=== PATIENT | female | born 1945 | race Caucasian/White ===

== ENCOUNTER → 2017-02-14 | Outpatient (CLI) | payer MEDICARE ==
[~2017-02-14] VITALS: Ht 170.2 cm; Wt 129.7 kg
[~2017-02-14] MED LIST: ALPR.5 PO; AMLO5 PO; CELE20TA PO; CHLORHEXIDINE GLUCONATE 2 % 1 PACK (2 CLOTHS) TOPICAL PRN; INSULIN HUMAN REGULAR 1,000 UNITS/10 ML VIAL SQ PRN; LACTATED RINGER'S 1000 ML IV PRN; LEVO150T52 PO; METOPROLOL TARTRATE 25 MG TAB PO PRN; POVIDONE IODINE 5% (ANTISEPSIS KIT) 4 APPLICATIONS EACH NARE PRN; PRAV40TA PO; PROPOFOL 200 MG/20 ML AMP IV ONE; SODIUM CHLORID 0.9% 500 ML IV PRN; TRIA37.53 PO
[2017-02-14 09:25] VITALS: BP 125/73; PULSE 70; RESP 16; TEMP 98.7; O2SAT 97
[2017-02-14 12:10] VITALS: TEMP 97.3
--- NOTE | 2017-02-14 12:14 | PD.PROCEDR ---
GI Procedure PROCEDURE PERFORMED Colonoscopy with biopsy INDICATION FOR PROCEDURE Screening PROCEDURE: The procedure, risks and benefits were discussed with Ms. Caceres and informed consent was obtained. Anesthesia sedated her with Diprivan. She was placed in the left lateral decubitus position. Colonoscopy: The Pentax videoscope was introduced through the rectum and advanced to cecum where the ileocecal valve and appendiceal orifice were identified. Retroflexion was performed in the rectum. Colonic prep was fair FINDINGS: Colonic withdrawal time greater than 6 minutes as the scope was slowly withdrawn colonic mucosa was carefully inspected the patient was noted to have 2 small polyps 1 in the ascending colon one in the descending colon both were excised using cold biopsy forceps excision was complete the patient was also noted to have severe diverticulosis of the sigmoid and to a lesser extent of the descending colon retroflexion in the rectum was unremarkable cells rectal examination ESTIMATED BLOOD LOSS: None SPECIMENS REMOVED: : Biopsies COMPLICATIONS: None IMPRESSION: Colon polyps Severe diverticulosis PLAN: Await biopsy High fiber diet with fiber supplements and to avoid nuts seeds and popcorn and to chew food well Colonoscopy in 3 years Riky Hurley MD Feb 14, 2017 12:14
[2017-02-14 12:24] VITALS: BP 105/54; PULSE 55; RESP 16; O2SAT 98
== END ==
LOC: HEND 08:35
PROVIDERS: ATTEND Internal Medicine Gastroenterology
DX: Z12.11 Encounter for screening for malignant neoplasm of colon (principal); D12.4 Benign neoplasm of descending colon; D12.3 Benign neoplasm of transverse colon; K57.30 Diverticulosis of large intestine without perforation or abscess without bleeding; I12.9 Hypertensive chronic kidney disease with stage 1 through stage 4 chronic kidney disease, or unspecified chronic kidney disease; N18.3 Chronic kidney disease, stage 3 (moderate)
CPT/HCPCS: 00810; 45380; 88305; J7120

== ENCOUNTER 2018-04-14 17:41 | Observation (INO) | payer MEDICARE ==
[~2018-04-14] VITALS: Ht 170.2 cm; Wt 139.2 kg
[~2018-04-14 17:41] MED LIST changes: -CHLORHEXIDINE GLUCONATE 2 % 1 PACK (2 CLOTHS) TOPICAL PRN; -INSULIN HUMAN REGULAR 1,000 UNITS/10 ML VIAL SQ PRN; -LACTATED RINGER'S 1000 ML IV PRN; -METOPROLOL TARTRATE 25 MG TAB PO PRN; -POVIDONE IODINE 5% (ANTISEPSIS KIT) 4 APPLICATIONS EACH NARE PRN; -PROPOFOL 200 MG/20 ML AMP IV ONE; -SODIUM CHLORID 0.9% 500 ML IV PRN
[2018-04-14 18:08] VITALS: BP 182/74; PULSE 68; RESP 18; TEMP 98; O2SAT 95
[2018-04-14 19:58] VITALS: BP 177/79; PULSE 52; RESP 18; O2SAT 99
--- NOTE | 2018-04-14 20:10 | PD ---
HPI Chief Complaint: Chest Pain Time Seen by Provider: 19:59 Travel History International Travel<30 days: No Contact w/Intl Traveler<30days: No Traveled to known affect area: No History of Present Illness HPI The patient was seen and examined in the presence of the nurse. This patient complains of chest pain. Pain started this morning shortly after she woke up. Spend coming on and off throughout the day. Last several minutes and resolves. It is not exertional. Location is very low center sternum. Almost at the juncture and of chest and abdomen. She has no gallbladder. She has not had vomiting or fever. Symptom severity is moderate. No alleviating factors. No exacerbating factors. She did have a cardiac stress test many years ago which was negative. She denies any cardiac problems. She does have an hiatal hernia PFS Past Medical History Cancer: Yes (RIGHT BREAST ) Cardiac Catheterization: Yes Cardiovascular Problems: No High Cholesterol: Yes Diabetes: No Diminished Hearing: No Endocrine: No GERD: Yes Glaucoma: No Genitourinary: No Hepatitis: No Hiatal Hernia: Yes Hypertension: Yes Immune Disorder: No Musculoskeletal: Yes (ARTHRITIS) Neurologic: No Psychiatric: No Reproductive: No Respiratory: Yes (COPD) Thyroid Disease: Yes ?: Not Menopausal: Yes Past Surgical History Abdominal Surgery: Yes (CHOLECYSTECTOMY) AICD: No Appendectomy: Yes Body Medical Devices: PIN LEFT ANKLE Cholecystectomy: Yes Ear Surgery: Yes Joint Replacement: Yes (BOTH KNEES) Pacemaker: No Thoracic Surgery: Yes (LUMPECTOMY RIGHT BREAST,) Tonsillectomy: Yes Other Surgery: Yes (TUMOR REMOVED FROM RIGHT BREAST 05/2008) Social History Alcohol Use: Yes (OCC) Tobacco Use: No Substance Use: No Allergies-Medications (Allergen,Severity, Reaction): Coded Allergies: No Known Allergies (Verified , 02/14/17) Reported Meds & Prescriptions Reported Meds & Active Scripts Active Reported Levoxyl (Levothyroxine Sodium) 150 Mcg Tab 150 Mcg PO DAILY Triamterene-Hydrochlorothiazide 37.5-25 Mg Cap 1 Cap PO DAILY Pravachol (Pravastatin) 40 Mg Tab 40 Mg PO HS Norvasc (Amlodipine Besylate) 5 Mg Tab 5 Mg PO DAILY Xanax (Alprazolam) 0.5 Mg Tab 0.5 Mg PO DAILY PRN Review of Systems General / Constitutional: No: Fever Eyes: No: Visual changes HENT: No: Headaches Cardiovascular: Positive: Chest Pain or Discomfort Respiratory: No: Shortness of Breath Gastrointestinal: No: Vomiting Genitourinary: No: Dysuria Musculoskeletal: No: Pain Skin: No Rash Neurologic: No: Weakness Psychiatric: No: Depression Endocrine: No: Polydipsia Hematologic/Lymphatic: No: Easy Bruising Physical Exam Narrative GENERAL: Well-nourished, well-developed patient in no apparent distress. SKIN: Focused skin assessment reveals no rash and nodules. Skin is Warm and dry. HEAD: Atraumatic. Normocephalic. EYES: Pupils equal and round. No scleral icterus. No injection or drainage. ENT: No nasal bleeding or discharge. Mucous membranes pink and moist. NECK: Trachea midline. No JVD. CARDIOVASCULAR: Regular rate and rhythm. No murmur appreciated. RESPIRATORY: No accessory muscle use. Clear to auscultation. Breath sounds equal bilaterally. GASTROINTESTINAL: Abdomen soft, obese, non-tender, nondistended. Hepatic and splenic margins not palpable. MUSCULOSKELETAL: No obvious deformities. No clubbing. No cyanosis. No edema. NEUROLOGICAL: Awake and alert. No obvious cranial nerve deficits. Motor grossly within normal limits. Normal speech. PSYCHIATRIC: Appropriate mood and affect; insight and judgment normal. Data Data Last Documented VS Vital Signs Date Time Temp Pulse Resp B/P (MAP) Pulse Ox O2 Delivery O2 Flow Rate FiO2 04/14/18 21:17 66 16 144/61 (88) 98 Room Air 04/14/18 18:08 98.0 Orders Orders Electrocardiogram (04/14/18 20:06) Ckmb (Isoenzyme) Profile (04/14/18 20:06) Complete Blood Count With Diff (04/14/18 20:06) Comprehensive Metabolic Panel (04/14/18 20:06) Prothrombin Time / Inr (Pt) (04/14/18 20:06) Act Partial Throm Time (Ptt) (04/14/18 20:06) Troponin I (04/14/18 20:06) Chest, Single Ap (04/14/18 20:06) Ecg Monitoring (04/14/18 20:06) Iv Access Insert/Monitor (04/14/18 20:06) Oximetry (04/14/18 20:06) Sodium Chloride 0.9% Flush (Ns Flush) (04/14/18 20:15) Lidocaine 2% Viscous (Xylocaine 2% Visco (04/14/18 20:15) Al-Mag Hy-Si 40-40-4 Mg/Ml Liq (Mag-Al P (04/14/18 20:15) Lipase (04/14/18 20:06) CKMB (04/14/18 20:05) CKMB% (04/14/18 20:05) Admit Order (Ed Use Only) (04/14/18:31) Place In Observation (04/14/18:29) Activity Bed Rest With Brp (04/14/18:29) Vital Signs (Adult) Q4H (04/14/18:) Cardiac Rhythm .As Directed (04/14/18) Notify Dr: Other .PRN (04/14/18:) Notify Parameters (04/14/18:) Resp Oxygen Nasal Cannula (04/14/18 ) Diet Npo (04/15/18 Breakfast) Ckmb (Isoenzyme) Profile (04/14/18 23:00) Ckmb (Isoenzyme) Profile (04/15/18 02:00) Troponin I (04/14/18 23:00) Troponin I (04/15/18 02:00) Electrocardiogram (04/14/18 23:00) Electrocardiogram (04/15/18 02:00) ^ Obtain (04/14/18:29) Sodium Chlor 0.9% 1000 Ml Inj (Ns 1000 M (04/14/18:29) Sodium Chloride 0.9% Flush (Ns Flush) (04/14/18 21:30) Sodium Chloride 0.9% Flush (Ns Flush) (04/15/18 09:00) Acetaminophen (Tylenol) (04/14/18 21:30) Acetamin-Hydrocod 325-7.5 Mg ([place] 7.5 (04/14/18 21:30) Morphine Inj (Morphine Inj) (04/14/18 21:30) Ondansetron Inj (Zofran Inj) (04/14/18 21:30) Pet Caregiver / Telemetry JACKSON.Q8H (04/14/18:29) Heparin Inj (Heparin Inj) (04/14/18 21:30) Labs Laboratory Tests Test 04/14/18 20:05 White Blood Count 8.1 TH/MM3 Red Blood Count 4.72 MIL/MM3 Hemoglobin 13.4 GM/DL Hematocrit 40.5 % Mean Corpuscular Volume 86.0 FL Mean Corpuscular Hemoglobin 28.4 PG Mean Corpuscular Hemoglobin Concent 33.0 % Red Cell Distribution Width 13.8 % Platelet Count 206 TH/MM3 Mean Platelet Volume 8.9 FL Neutrophils (%) (Auto) 67.6 % Lymphocytes (%) (Auto) 19.5 % Monocytes (%) (Auto) 8.4 % Eosinophils (%) (Auto) 3.9 % Basophils (%) (Auto) 0.6 % Neutrophils # (Auto) 5.5 TH/MM3 Lymphocytes # (Auto) 1.6 TH/MM3 Monocytes # (Auto) 0.7 TH/MM3 Eosinophils # (Auto) 0.3 TH/MM3 Basophils # (Auto) 0.0 TH/MM3 CBC Comment DIFF FINAL Differential Comment Prothrombin Time 10.2 SEC Prothromb Time International Ratio 1.0 RATIO Activated Partial Thromboplast Time 27.9 SEC Blood Urea Nitrogen 31 MG/DL Creatinine 1.10 MG/DL Random Glucose 87 MG/DL Total Protein 7.4 GM/DL Albumin 3.8 GM/DL Calcium Level 9.5 MG/DL Alkaline Phosphatase 81 U/L Aspartate Amino Transf (AST/SGOT) 18 U/L Alanine Aminotransferase (ALT/SGPT) 24 U/L Total Bilirubin 0.3 MG/DL Sodium Level 140 MEQ/L Potassium Level 4.4 MEQ/L Chloride Level 105 MEQ/L Carbon Dioxide Level 25.2 MEQ/L Anion Gap 10 MEQ/L Estimat Glomerular Filtration Rate 49 ML/MIN Total Creatine Kinase 149 U/L Creatine Kinase MB 2.7 NG/ML Troponin I LESS THAN 0.02 NG/ML Lipase 197 U/L MDM Medical Decision Making Medical Screen Exam Complete: Yes Emergency Medical Condition: Yes Medical Record Reviewed: Yes Differential Diagnosis ACS, esophagitis, GERD, pancreatitis Narrative Course I have reviewed the patient's electronic medical record. No recent cardiac workups here. Patient had chest fluttering 2006 IV placed and labs sent I reviewed her EKG which shows sinus rhythm and no ST elevation or ectopy I reviewed her chest x-ray which is negative Extended cardiac monitoring reveals sinus rhythm without ectopy I gave her a trial of Maalox and lidocaine Metabolic studies and CBC and cardiac enzymes are all normal Patient will be a 23 hour observation in the chest pain center in order to rule out cardiac cause of her symptoms. It is possible this is GI in origin but given her age and obesity she has cardiac risk I reviewed with the hospitalist Diagnosis Primary Impression: Chest pain Qualified Codes: R07.9 - Chest pain, unspecified Admitting Information Admitting Physician Requests: Observation Samuel Guzman MD Apr 14, 2018 20:10
[2018-04-14] MEDS ORDERED: SODIUM CHLORIDE 0.9% FLUSH 10 ML FLUSH IVF PRN (20:15)
[2018-04-14] MEDS ORDERED: LIDOCAINE VISCOUS 2% SOLN 15 ML UDC PO ONE (20:15)
[2018-04-14] MEDS ORDERED: ALUMINUM/MAGNESIUM/SIMETH 30 ML CUP PO ONE (20:15)
[2018-04-14 20:18] LABS: AUTOMATED NEUTROPHIL # 5.5 TH/MM3 (1.8-7.7); BASOPHIL % 0.6 % (0.0-2.0); EOSINOPHIL # 0.3 TH/MM3 (0-0.4); EOSINOPHIL % 3.9 % (0.0-4.0); HEMATOCRIT 40.5 % (35.0-46.0); HEMOGLOBIN 13.4 GM/DL (11.6-15.3); LYMPH % 19.5 % (9.0-44.0); LYMPHOCYTE # 1.6 TH/MM3 (1.0-4.8); MEAN CORPUSCULAR HEMOGLOBIN 28.4 PG (27.0-34.0); MEAN PLATELET VOLUME 8.9 FL (7.0-11.0); MONO % 8.4 % (0.0-8.0); MONOCYTE # 0.7 TH/MM3 (0-0.9); NEUT % 67.6 % (16.0-70.0); PLATELET COUNT 206 TH/MM3 (150-450); RED BLOOD COUNT 4.72 MIL/MM3 (4.00-5.30); RED CELL DISTRIBUTION WIDTH 13.8 % (11.6-17.2); WHITE BLOOD COUNT 8.1 TH/MM3 (4.0-11.0)
[2018-04-14 20:29] VITALS: BP 137/63; PULSE 58; RESP 18; O2SAT 98
[2018-04-14 20:32] LABS: CHLORIDE 105 MEQ/L (98-107); SODIUM (NA) 140 MEQ/L (136-145)
[2018-04-14 20:35] LABS: CALCIUM 9.5 MG/DL (8.5-10.1)
[2018-04-14 20:36] LABS: ALBUMIN 3.8 GM/DL (3.4-5.0); BICARBONATE 25.2 MEQ/L (21.0-32.0); BLOOD UREA NITROGEN 31 MG/DL (7-18); GLUCOSE,RANDOM 87 MG/DL (74-106); PROTHROMBIN TIME - PATIENT 10.2 SEC (9.8-11.6)
[2018-04-14 20:38] LABS: ALT (GPT) 24 U/L (10-53); AST (GOT) 18 U/L (15-37)
[2018-04-14 20:39] LABS: GLOMERULAR FILTRATION RATE 49 ML/MIN (>89)
[2018-04-14 20:40] LABS: TOTAL BILIRUBIN ADULT 0.3 MG/DL (0.2-1.0); TOTAL PROTEIN 7.4 GM/DL (6.4-8.2)
[2018-04-14 20:41] LABS: ALKALINE PHOSPHATASE 81 U/L (45-117)
[2018-04-14 20:44] LABS: TROPONIN I LESS THAN 0.02 NG/ML (0.02-0.05)
--- NOTE | 2018-04-14 21:05 | RADRPT ---
EXAM DATE: 04/14/2018 8:47 PM EDT AGE/SEX: 72 years / Female INDICATIONS: Patient complains of tightness in center of chest. CLINICAL DATA: This is the patient's initial encounter. Patient reports that signs and symptoms have been present for 1 day and indicates a pain score of 2/10. MEDICAL/SURGICAL HISTORY: . Hiatal hernia. . Lumpectomy, left. COMPARISON: [facility], CHEST SINGLE AP, 06/15/2016. . FINDINGS: A single AP view of the chest demonstrates the lungs to be symmetrically aerated without evidence of mass, infiltrate or effusion. The cardiomediastinal contours are unremarkable. Osseous structures a re intact. CONCLUSION: No acute cardiopulmonary findings. Stable compared to previous. Electronically signed by: Brian Amin MD 04/14/2018 9:04 PM EDT
[2018-04-14 21:17] VITALS: BP 144/61; PULSE 66; RESP 16; O2SAT 98
[2018-04-14] MEDS ORDERED: ONDANSETRON HCL 4 MG/2 ML VIAL IV PUSH PRN (21:30)
[2018-04-14] MEDS ORDERED: SODIUM CHLORIDE 0.9% FLUSH 10 ML FLUSH IV FLUSH PRN (21:30)
[2018-04-14] MEDS ORDERED: ACETAMINOPHEN/HYDROcodone 325 MG/7.5 MG TAB PO PRN (21:30)
[2018-04-14] MEDS ORDERED: ACETAMINOPHEN 500 MG CPLT PO PRN (21:30)
[2018-04-14] MEDS ORDERED: MORPHINE SULFATE 2 MG/ML SYRINGE IV PUSH PRN (22:00)
[2018-04-14 22:07] VITALS: O2SAT 99
[2018-04-14] MEDS: HEPARIN SODIUM - SQ 10,000 UNITS/ML VIAL SQ SCH (22:20)
[2018-04-14 23:09] VITALS: PULSE 54
[2018-04-14] MEDS: SODIUM CHLOR 0.9% 1000 ML INJ 1,000 ML IV SCH (23:17)
[2018-04-14 23:37] LABS: TROPONIN I LESS THAN 0.02 NG/ML (0.02-0.05)
[2018-04-15] VITALS: BP 142/65; PULSE 52; RESP 20; TEMP 97.3; O2SAT 100
[2018-04-15] MEDS ORDERED: ALPRAZolam 0.5 MG TAB PO SCH (02:30)
[2018-04-15 03:09] LABS: TROPONIN I LESS THAN 0.02 NG/ML (0.02-0.05)
[2018-04-15 04:00] VITALS: BP 144/67; PULSE 55; RESP 21; TEMP 98.2; O2SAT 98
[2018-04-15] MEDS: HEPARIN SODIUM - SQ 10,000 UNITS/ML VIAL SQ SCH ×2 (05:06→14:00)
[2018-04-15] MEDS: SODIUM CHLOR 0.9% 1000 ML INJ 1,000 ML IV SCH ×2 (05:06→13:29)
[2018-04-15] MEDS ORDERED: LEVOTHYROXINE SODIUM 150 MCG TAB PO SCH (07:00)
[2018-04-15 07:50] VITALS: BP 151/64; PULSE 56; RESP 20; TEMP 96.8; O2SAT 99
--- NOTE | 2018-04-15 08:04 | HHI.HP ---
[facility] Service [facility] Primary Care Physician Isabella Menjivar MD Admission Diagnosis Chest pain Diagnoses: (1) Chest pain Chief Complaint: Chest pain Travel History International Travel<30 Days: No Contact w/Intl Traveler <30 Da: No Traveled to Known Affected Are: No History of Present Illness This is a pleasant 72-year-old female patient with a known medical history of hyperlipidemia, GERD, hypertension, hypothyroidism who presented to the ED with complaints of chest pain. Patient states that yesterday morning shortly after waking up she was drinking her coffee around 11 AM and developed mid epigastric pain, she characterized the pain similar to indigestion. She does admit to burning pain as well as gas. Patient states that she did take some Gas-X which mildly helped the symptoms although her pain did return. She denies any recent illness including fever, chills, cough, shortness of breath, abdominal pain, nausea, vomiting, diarrhea or dysuria. She denies any bloody or black stools. Patient does state that when she arrived to the ER she was given Maalox which did help her symptoms. Along with the mid epigastric burning she did state that her left arm was cramping as well as her left ear and jaw. She also admits to some fluttering sensation in her chest. She denies ever having this type of sensations before. Patient does admit to increasing stress in her life due to her daughter's illness. She does state that she did follow with [facility] over a year ago underwent a nuclear stress test in January of 2017 which was reportedly unremarkable. Review of Systems Constitutional: DENIES: Fever, Chills Eyes: DENIES: Blurred vision, Diplopia Ears, nose, mouth, throat: DENIES: Vertigo Respiratory: DENIES: Cough, Sputum production, Shortness of breath Cardiovascular: COMPLAINS OF: Chest pain, Palpitations, DENIES: Dyspnea on Exertion, Lower Extremity Edema Gastrointestinal: COMPLAINS OF: Abdominal pain, DENIES: Black stools, Bloody stools, Constipation, Diarrhea, Nausea, Vomiting Hematologic/lymphatic: DENIES: Bruising Immunologic/allergic: DENIES: Eczema Neurologic: DENIES: Abnormal gait Psychiatric: COMPLAINS OF: Anxiety Except as stated in HPI: all other systems reviewed are Neg Past Family Social History Past Medical History History of right breast cancer Hyperlipidemia GERD Hiatal hernia Hypertension Arthritis Hypothyroidism COPD Past Surgical History Cholecystectomy Bilateral knee replacement Right breast lumpectomy Appendectomy Tonsillectomy Reported Medications Active Reported Levoxyl (Levothyroxine Sodium) 150 Mcg Tab 150 Mcg PO DAILY Triamterene-Hydrochlorothiazide 37.5-25 Mg Cap 1 Cap PO DAILY Pravachol (Pravastatin) 40 Mg Tab 40 Mg PO HS Norvasc (Amlodipine Besylate) 5 Mg Tab 5 Mg PO DAILY Xanax (Alprazolam) 0.5 Mg Tab 0.5 Mg PO TID Allergies: Coded Allergies: No Known Allergies (Verified Allergy, Unknown, 04/14/18) Active Ordered Medications Current Medications Medications (Trade) Dose Ordered Sig/Malathi Route Start Time Stop Time Status Last Admin Sodium Chloride 1,000 ml @ 125 mls/hr Q8H IV 04/14/18 21:29 04/15/18 05:06 (NS Flush) 2 ml UNSCH PRN IV FLUSH 04/14/18 21:30 (NS Flush) 2 ml BID IV FLUSH 04/15/18 09:00 (Tylenol) 500 mg Q4H PRN PO 04/14/18 21:30 04/14/18 23:36 ([place] 7.5-325 Mg) 1 tab Q4H PRN PO 04/14/18 21:30 (Morphine Inj) 2 mg Q4H PRN IV PUSH 04/14/18 22:00 (Zofran Inj) 4 mg Q6H PRN IV PUSH 04/14/18 21:30 (Heparin Inj) 5,000 units Q8HR SQ 04/14/18 22:00 04/15/18 05:06 (Xanax) 0.5 mg TID PO 04/15/18 09:00 04/15/18 09:06 (Norvasc) 5 mg DAILY PO 04/15/18 09:00 04/15/18 09:06 (Synthroid) 150 mcg DAILY@0700 PO 04/15/18 07:00 04/15/18 09:06 (Pravachol) 40 mg HS PO 04/15/18 21:00 (Protonix) 40 mg DAILY PO 04/15/18 09:00 04/15/18 09:06 Family History Denies any significant family medical history. Social History Denies any tobacco abuse. She does admit to occasional alcohol use. Denies any illicit drug use. Physical Exam Vital Signs Vital Signs Date Time Temp Pulse Resp B/P (MAP) Pulse Ox O2 Delivery O2 Flow Rate FiO2 04/15/18 04:00 98.2 55 21 144/67 (92) 98 04/15/18 00:00 97.3 52 20 142/65 (90) 100 04/14/18 23:10 04/14/18 23:09 54 04/14/18 22:07 99 21 04/14/18 21:17 66 16 144/61 (88) 98 Room Air 04/14/18 20:29 58 18 137/63 (87) 98 Room Air 04/14/18 20:01 63 99 Room Air 04/14/18 19:58 52 18 177/79 (111) 99 Room Air 04/14/18 18:08 98.0 68 18 182/74 (110) 95 Physical Exam GENERAL: This is a well-nourished, well-developed patient, in no apparent distress. SKIN: No rashes, ecchymoses or lesions. Cool and dry. HEAD: Atraumatic. Normocephalic. No temporal or scalp tenderness. EYES: Pupils equal round and reactive. Extraocular motions intact. No scleral icterus. No injection or drainage. ENT: Nose without bleeding, purulent drainage or septal hematoma. Throat without erythema, tonsillar hypertrophy or exudate. Uvula midline. Airway patent. NECK: Trachea midline. No JVD or lymphadenopathy. Supple, nontender, no meningeal signs. CARDIOVASCULAR: Regular rate and rhythm without murmurs, gallops, or rubs. RESPIRATORY: Clear to auscultation. Breath sounds equal bilaterally. No wheezes , rales, or rhonchi. GASTROINTESTINAL: Abdomen soft, non-tender, nondistended. No hepato-splenomegaly , or palpable masses. No guarding. MUSCULOSKELETAL: Extremities without clubbing, cyanosis, or edema. No joint tenderness, effusion, or edema noted. No calf tenderness. Negative Homans sign bilaterally. NEUROLOGICAL: Awake and alert. Cranial nerves II through XII intact. Motor and sensory grossly within normal limits. Five out of 5 muscle strength in all muscle groups. Normal speech. Laboratory Laboratory Tests Test 04/14/18 20:05 04/14/18 23:05 04/15/18 02:28 White Blood Count 8.1 Red Blood Count 4.72 Hemoglobin 13.4 Hematocrit 40.5 Mean Corpuscular Volume 86.0 Mean Corpuscular Hemoglobin 28.4 Mean Corpuscular Hemoglobin Concent 33.0 Red Cell Distribution Width 13.8 Platelet Count 206 Mean Platelet Volume 8.9 Neutrophils (%) (Auto) 67.6 Lymphocytes (%) (Auto) 19.5 Monocytes (%) (Auto) 8.4 Eosinophils (%) (Auto) 3.9 Basophils (%) (Auto) 0.6 Neutrophils # (Auto) 5.5 Lymphocytes # (Auto) 1.6 Monocytes # (Auto) 0.7 Eosinophils # (Auto) 0.3 Basophils # (Auto) 0.0 CBC Comment DIFF FINAL Differential Comment Prothrombin Time 10.2 Prothromb Time International Ratio 1.0 Activated Partial Thromboplast Time 27.9 Blood Urea Nitrogen 31 Creatinine 1.10 Random Glucose 87 Total Protein 7.4 Albumin 3.8 Calcium Level 9.5 Alkaline Phosphatase 81 Aspartate Amino Transf (AST/SGOT) 18 Alanine Aminotransferase (ALT/SGPT) 24 Total Bilirubin 0.3 Sodium Level 140 Potassium Level 4.4 Chloride Level 105 Carbon Dioxide Level 25.2 Anion Gap 10 Estimat Glomerular Filtration Rate 49 Total Creatine Kinase 149 130 151 Creatine Kinase MB 2.7 2.3 2.1 Troponin I LESS THAN 0.02 LESS THAN 0.02 LESS THAN 0.02 Lipase 197 Result Diagram: 04/14/18200404/14/182004 Imaging Last Impressions Chest X-Ray 04/14/182005 Signed Impressions: CONCLUSION: No acute cardiopulmonary findings. Stable compared to previous. Septic Shock Reassessment Septic shock perfusion: reassessment completed Caprini VTE Risk Assessment Caprini VTE Risk Assessment: Mod/High Risk (score >= 2) Caprini Risk Assessment Model Point Value = 1 Point Value = 2 Point Value = 3 Point Value = 5 Age 41-60 Minor surgery BMI > 25 kg/m2 Swollen legs Varicose veins or History of unexplained or recurrent spontaneous Oral contraceptives or hormone replacement Sepsis (< 1 month) Serious lung disease, including pneumonia (< 1 month) Abnormal pulmonary function Acute myocardial infarction Congestive heart failure (< 1 month) History of inflammatory bowel disease Medical patient at bed rest Age 61-74 Arthroscopic surgery Major open surgery (> 45 min) Laparoscopic surgery (> 45 min) Malignancy Confined to bed (> 72 hours) Immobilizing plaster cast Central venous access Age >= 75 History of VTE Family history of VTE Factor V Leiden Prothrombin [id number] Lupus anticoagulant Anticardiolipin antibodies Elevated serum homocysteine Heparin-induced thrombocytopenia Other congenital or acquired thrombophilia Stroke (< 1 month) Elective arthroplasty Hip, pelvis, or leg fracture Acute spinal cord injury (< 1 month) Prophylaxis Regimen Total Risk Factor Score Risk Level Prophylaxis Regimen 0-1 Low Early ambulation 2 Moderate Order ONE of the following: *Sequential Compression Device (SCD) *Heparin 5000 units SQ BID 3-4 Higher Order ONE of the following medications: *Heparin 5000 units SQ TID *Enoxaparin/Lovenox 40 mg SQ daily (WT < 150 kg, CrCl > 30 mL/min) *Enoxaparin/Lovenox 30 mg SQ daily (WT < 150 kg, CrCl > 10-29 mL/min) *Enoxaparin/Lovenox 30 mg SQ BID (WT < 150 kg, CrCl > 30 mL/min) AND/OR *Sequential Compression Device (SCD) 5 or more Highest Order ONE of the following medications: *Heparin 5000 units SQ TID (Preferred with Epidurals) *Enoxaparin/Lovenox 40 mg SQ daily (WT < 150 kg, CrCl > 30 mL/min) *Enoxaparin/Lovenox 30 mg SQ daily (WT < 150 kg, CrCl > 10-29 mL/min) *Enoxaparin/Lovenox 30 mg SQ BID (WT < 150 kg, CrCl > 30 mL/min) AND *Sequential Compression Device (SCD) Assessment and Plan Problem List: (1) Chest pain ICD Code: R07.9 - Chest pain, unspecified Status: Acute Assessment and Plan This is a pleasant 72-year-old female patient with a known medical history of hyperlipidemia, GERD, hypertension, hypothyroidism who presented to the ED with complaints of chest pain. Atypical chest pain - Patient has been admitted to the chest pain center for observation. - Serial EKGs and serial troponins have been ordered for ruling out ACS purposes. Serial troponins flat. EKG reviewed showing sinus bradycardia no ST changes to indicate ischemia. - CBC and BMP reviewed, essentially unremarkable. - Chest x-ray reviewed showing no acute disease. - All symptoms have resolved. - Pain control, [place] p.o. and morphine IV available per pain scale. - Patient does admit to associated midepigastric burning. Was given one-time dose of Maalox with some relief. Will repeat. - Patient will undergo a myocardial perfusion scan to further rule out any ischemia. - Further hospitalization and treatment plan will depend on nuclear imaging results. - Patient is stable at this time and agreeable to the plan. Hypertension, chronic: We will continue home medications. Continue to monitor blood pressure trends. GERD: Maalox given x 2. Protonix started. Will continue to monitor. Supportive care. Hyperlipidemia, chronic: We will continue home statin. DVT prophylaxis: SCDs. Heparin. Discharge patient to home. Condition on discharge: Improved. Heart healthy regular Diet as tolerated. Ad Trista activity. Rx written: Please see discharge instructions. Follow-up with primary care physician. Discussed Condition With Patient underwent myocardial perfusion scan, results reviewed with patient. EF adequate. No ischemia. Symptoms may be secondary to reflux. Patient may need endoscopy. Encourage patient to follow-up with GI. Patient given her tonics as well as Maalox. All symptoms have resolved. Patient encouraged to return to ED if symptoms worsen or persist. Stable at this time and agreeable to the plan. Problem Qualifiers (1) Chest pain: Qualified Codes: R07.9 - Chest pain, unspecified Kandace Velasquez Apr 15, 2018 08:04
[2018-04-15 08:19] VITALS: PULSE 62
[2018-04-15] MEDS ORDERED: ALUMINUM/MAGNESIUM/SIMETH 30 ML CUP PO ONE (08:30)
[2018-04-15] MEDS ORDERED: PANTOPRAZOLE SOD 40 MG DELAYED RELEASE TAB PO SCH (09:00)
[2018-04-15] MEDS ORDERED: SODIUM CHLORIDE 0.9% FLUSH 10 ML FLUSH IV FLUSH SCH (09:00)
[2018-04-15] MEDS ORDERED: amLODIPine BESYLATE 5 MG TAB PO SCH (09:00)
[2018-04-15] MEDS: ALPRAZolam 0.5 MG TAB PO SCH ×2 (09:06→12:37)
[2018-04-15 11:50] VITALS: BP 148/66; PULSE 64; RESP 20; TEMP 96.4; O2SAT 98
[2018-04-15] MEDS ORDERED: REGADENOSON INJ 0.4 MG/5 ML SYR IV ONE (12:00)
--- NOTE | 2018-04-15 13:01 | RADRPT ---
EXAM DATE: 04/15/2018 12:55 PM EDT AGE/SEX: 72 years / Female INDICATIONS:Angina. . Chest pain. CLINICAL DATA: This is the patient's initial encounter. Patient reports that signs and symptoms have been present for 1 day and indicates a pain score of 0/10. MEDICAL/SURGICAL HISTORY: Chronic obstructive pulmonary disease. Carcinoma, breast. Hypertens ion. Cholecystectomy. COMPARISON: No prior exams available for comparison. DOSE: 11.0 mCi Tc 99m Myoview at rest 35.0 mCi [id number] at stress 0.4 mg Lexiscan STRESS SYMPTOMS: Abdomen cramps. EJECTION FRACTION: 56 % TECHNIQUE: The patient underwent pharmacologic stress with infusion of prescribed dose. Continuous ECG tracing was monitored during stress. Gated SPECT imaging was performed after stress and conventi onal SPECT imaging was performed at rest. The examination was performed on a SPECT/CT scanner, both attenuation and non-corrected datasets were reviewed. FINDINGS: Distribution: The maximum perfused segment at stress is in the lateral wall. Raw data images demonst rate significant breast attenuation laterally, diaphragmatic attenuation inferiorly, and scatter from the elevated right lobe of the liver. Perfusion Study: There is a small size moderately severe reduction in activity in the apical latera l segment, with reduction of approximately 50% less than rest perfusion wall: Defect is fixed without evidence of redistribution. Regional variations perfusion in the other myocardial segments are withi n 25%. Stress score is 8. Gated Study: There are intact wall motion and wall thickening without hypokinetic or dyskinetic segm ents. The ejection fraction is calculated at 56%. RISK CATEGORY: Low (<1% Annual Motality Rate) CONCLUSION: 1. No evidence of stress-induced ischemia. 2. Small fixed perfusion defect in the apical lateral segment suggests myocardial scar or old infarc tion. 3. Intact wall motion with 56% ejection fraction. Electronically signed by: Jonah Ventura MD 04/15/2018 1:00 PM EDT
[2018-04-15] MEDS ORDERED: MAG-LIQ PO (13:09)
[2018-04-15] MEDS ORDERED: PANT40TA3 PO (13:09)
--- NOTE | 2018-04-15 13:10 | HHI.DCPOC ---
Discharge Care Plan Diagnosis: (1) Chest pain Goals to Promote Your Health * To prevent worsening of your condition and complications * To maintain your health at the optimal level Directions to Meet Your Goals Take your medications as prescribed Follow your dietary instruction Follow activity as directed Keep your appointments as scheduled Take your immunizations and boosters as scheduled If your symptoms worsen call your PCP, if no PCP go to Urgent Care Center or Emergency Room Smoking is Dangerous to Your Health. Avoid second hand smoke Call the 24-hour hour crisis hotline for domestic abuse at Kandace Velasquez Apr 15, 2018 13:10
--- NOTE | 2018-04-15 20:31 | EKG ---
Date Performed: 04/15/2018 Time Performed: 01:55:20 PTAGE: 72 years EKG: SINUS BRADYCARDIA BORDERLINE ECG PREVIOUS TRACING : 04/14/2018 22.57 Since the previous tracing, no significant change noted DOCTOR: Jeff Roman Interpretating Date/Time 04/15/2018 20:30:37
--- NOTE | 2018-04-15 20:38 | EKG ---
Date Performed: 04/14/2018 Time Performed: 22:57:24 PTAGE: 72 years EKG: SINUS BRADYCARDIA BORDERLINE ECG PREVIOUS TRACING : 04/14/2018 17.53 Since the previous tracing, no significant change noted DOCTOR: Jeff Roman Interpretating Date/Time 04/15/2018 20:37:35
[2018-04-15] MEDS ORDERED: PRAVASTATIN SOD 40 MG TAB PO SCH (21:00)
--- NOTE | 2018-04-15 21:05 | EKG ---
Date Performed: 04/14/2018 Time Performed: 17:53:53 PTAGE: 72 years EKG: Sinus rhythm BORDERLINE LEFT AXIS DEVIATION BORDERLINE ECG PREVIOUS TRACING : 04/14/2018 17.46 Since the previous tracing, no significant change noted DOCTOR: Jeff Roman Interpretating Date/Time 04/15/2018 21:05:15
--- NOTE | 2018-04-16 16:16 | TR ---
Date Performed: 04/15/2018 Time Performed: 11:45:13 DOCTOR: Abhay Kelly DRUG LIST: CLINICAL HISTORY: REASON FOR TEST: REASON FOR ENDING: OBSERVATION: CONCLUSION: Lexiscan stress test was performed under standard four minute protocol. Radionuclide was injected one minute prior to ending the test. No electrocardiographic abormalities were present to suggest ischemia. Nuclear imaging and interpretation are pending. COMMENTS:
== END 2018-04-15 14:55 | disposition home or self-care (01) ==
LOC: PHED 17:41 → PHEDA 21:32 → PH3A 23:09
PROVIDERS: ADMIT Hospitalist; ATTEND Hospitalist
DX: R07.9 Chest pain, unspecified (principal); K21.9 Gastro-esophageal reflux disease without esophagitis; I10 Essential (primary) hypertension; E78.5 Hyperlipidemia, unspecified; E03.9 Hypothyroidism, unspecified; R00.1 Bradycardia, unspecified; K44.9 Diaphragmatic hernia without obstruction or gangrene; J44.9 Chronic obstructive pulmonary disease, unspecified; Z79.899 Other long term (current) drug therapy; Z85.3 Personal history of malignant neoplasm of breast
CPT/HCPCS: 71045; 78452; 80053; 82550; 82552; 83690; 84484; 85025; 85610; 85730; 93005; 93017; 96360; 96361; 96372; 99285; A9502; G0378; J1644; J2785; J7030